=== PATIENT | female | born 1965 | race Caucasian/White ===

== ENCOUNTER 2016-12-03 07:16 | Day surgery (SDC) | payer OTHER ==
[~2016-12-03 07:16] MED LIST: EPINEPHRINE 1:1000 1 ML AMP ONE; Lactated Ringers 1,000 ML IV ONE; Marcaine 0.5% SDV 10 ML ONE; XYLOCAINE 1%/Epi 1:100000 MDV 20 ML ONE
[2016-12-03] MEDS ORDERED: CEFAZOLIN 2 GM-D5W BAG** 50 ML IV ONE ×2 (07:22→07:28)
[2016-12-03] MEDS ORDERED: Lactated Ringers 1,000 ML IV ONE (07:28)
[2016-12-03] MEDS ORDERED: Lactated Ringers 1,000 ML IV SCH (07:30)
[2016-12-03 08:15] LABS: ANION GAP 15.4 MEQ/L (5-15); BLOOD UREA NITROGEN 17 mg/dL (9-20); CHLORIDE 102 mEq/L (98-107); Carbon Dioxide 27.7 mEq/L (21-32); Glucose 218 MG/DL (70-110); SODIUM 141 mEq/L (136-145)
[2016-12-03] MEDS ORDERED: SUBLIMAZE 100 MCG/2 ML ONE (08:34)
[2016-12-03] MEDS ORDERED: SUBLIMAZE 100 MCG/2 ML IV SCH (08:45)
[2016-12-03] MEDS ORDERED: TORAdol 30 mg Injection IV ONE (10:00)
[2016-12-03] MEDS ORDERED: DIPRIVAN 200 MG/20 ML IV ONE (10:00)
[2016-12-03] MEDS ORDERED: SUBLIMAZE 100 MCG/2 ML IV ONE (10:00)
[2016-12-03] MEDS ORDERED: Zofran 4 MG/2 ML VIAL IV ONE (10:00)
[2016-12-03] MEDS ORDERED: DILAUDID 2 MG INJECTION IV ONE (10:00)
[2016-12-03] MEDS ORDERED: Decadron 4 MG INJ IV ONE (10:00)
[2016-12-03] MEDS ORDERED: ON-Q PUMP 1 in Marcaine Mpf 0.5% Vial 30 Ml*** 270 ML IV SCH (10:00)
[2016-12-03] MEDS ORDERED: APRESOLINE 20 MG/ML INJ ONE (11:30)
--- NOTE | 2016-12-03 11:57 | OP ---
SURGERY DATE/TIME: 12/03/2016 0958 PREOPERATIVE DIAGNOSIS: Internal derangement of the right knee. POSTOPERATIVE DIAGNOSES: 1) Right knee chondromalacia patella. 2) Right knee medial meniscal tear. 3) Multiple osteophytes intercondylar notch with osteochondral including one large osteochondral loose body. PROCEDURES: 1) Right knee arthroscopy with chondroplasty. 2) Right knee arthroscopy with debridement of medial meniscus and removal of loose body. 3) Right knee arthroscopy with bone saucerization-multiple osteophytes intercondylar notch. 4) Long leg splint. 5) On-Q pump catheter postoperative pain. SURGEON: Heron William D.O. MAINTENANCE MECHANIC: None. ANESTHESIA: General per SENIOR SALES COMPENSATION ANALYST. ESTIMATED BLOOD LOSS: Minimal. DESCRIPTION OF PROCEDURE: The patient is taken to the operative suite and placed in supine position, given a general anesthetic, placed supine. All neurovascular areas well padded. Sterile prep and drape done to the thigh. Entry point made in the suprapatellar pouch with Egress cannula and 0.5% Marcaine, 1% Lidocaine with epinephrine instilled into the knee. The infralateral aspect of the knee entered with a camera. Inframedial spinal needle stab incision and 404 radius shaver and the diagnostic arthroscopy begun. Chondral surface of the patella was pictured and probed. The chondral surface of the patella had multiple areas of type I and II outer bridge changes and this was treated with the ArthroCare device modified SERFAS device in the middle setting with a shaver and debrided these areas in the appropriate manner. Medial meniscus was probed and was found to have multiple tears over the posterior horn and the radial tears in the posterior horn were visualized and probed and then treated with punch forceps. Finally multiple osteophytic spurs in the intercondylar notch were pictured and probed and were treated with a 3.5 mm ivan and these were flattened out. I also removed a large osteochondral sessile loose body in the intercondylar notch and removed and sent to the back table. The lateral meniscus was assessed, it was cleaned and the rest of the joint surfaces were also without gross bony deficits. On-Q pump catheter placed over the separate entry point and secured with Steri-Strips run at a 1 to 2 cc/hour rate of 0.5% Marcaine. A long leg splint applied and the patient sent on to the recovery room in satisfactory condition.
[2016-12-03] MEDS ORDERED: Zofran 4 MG/2 ML VIAL IV PRN (12:05)
[2016-12-03] MEDS ORDERED: Zofran 4 MG/2 ML VIAL ONE (12:08)
[2016-12-03 16:49] VITALS: BP 161/92; PULSE 88; O2SAT 94
== END 2016-12-03 14:40 | disposition home or self-care (01) ==
LOC: SDC 07:16
PROVIDERS: ATTEND Orthopaedic Surgery
PROC: 0SBC4ZZ Excision of Right Knee Joint, Percutaneous Endoscopic Approach (ICD-10-PCS; principal; 2016-12-03)
PROC: 0SCC4ZZ Extirpation of Matter from Right Knee Joint, Percutaneous Endoscopic Approach (ICD-10-PCS; 2016-12-03)
PROC: 2W3QX1Z Immobilization of Right Lower Leg using Splint (ICD-10-PCS; 2016-12-03)
DX: M23.91 Unspecified internal derangement of right knee (principal); M22.41 Chondromalacia patellae, right knee; S83.241A Other tear of medial meniscus, current injury, right knee, initial encounter; M23.41 Loose body in knee, right knee; M25.561 Pain in right knee
CPT/HCPCS: 01400; 36415; 80048; 82962; 88304; 88311; J0171; J0360; J0690; J1100; J1170; J1885; J2405; J2704; J3010; L1830

== ENCOUNTER 2019-12-07 06:45 | Day surgery (SDC) | payer OTHER ==
[2019-12-07] MEDS ORDERED: Lactated Ringers 1,000 ML IV ONE ×2 (07:10→08:25)
[2019-12-07] MEDS ORDERED: Lactated Ringers 1,000 ML IV SCH (07:30)
[2019-12-07] MEDS ORDERED: Xylocaine-Mpf 2% 5 Ml Vial ONE (08:49)
[2019-12-07] MEDS ORDERED: DIPRIVAN 200 MG/20 ML IV ONE (08:49)
[2019-12-07] MEDS ORDERED: Zofran 4 MG/2 ML VIAL ONE (08:49)
[2019-12-07] MEDS ORDERED: SUBLIMAZE 100 MCG/2 ML ONE ×2 (08:49→10:07)
[2019-12-07] MEDS ORDERED: Decadron 4 MG INJ ONE (08:49)
[2019-12-07 10:54] VITALS: PULSE 71; O2SAT 96
[2019-12-07 11:07] VITALS: BP 152/85
--- NOTE | 2019-12-08 08:36 | OP ---
SURGERY DATE/TIME: 12/07/201928 PREOPERATIVE DIAGNOSIS: Postmenopausal bleeding. POSTOPERATIVE DIAGNOSIS: Postmenopausal bleeding. PROCEDURE: Hysteroscopy, D&C. SURGEON: Jj Pichardo D.O. ANESTHESIA: General. ESTIMATED BLOOD LOSS: Minimal. COMPLICATIONS: None. INDICATIONS: The risks, benefits, indications and alternatives of the procedure were reviewed with the patient prior to the procedure. The patient understood the risk of infection, bleeding, bowel injury, bladder injury, ureteral injury, uterine perforation, pelvic infection associated with the surgery and desired to have this surgery as a possible need to alleviate her current medical condition. DESCRIPTION OF PROCEDURE AND FINDINGS: At this point the patient is taken to the operating room, given general sedation, placed in dorsal lithotomy position. Prepped and draped in the usual sterile fashion. A weighted speculum is then placed in the patient's vagina and the anterior lip of the cervix was grasped with a single tooth tenaculum. Endocervical dilators are advanced through the endocervical canal as a means to dilate the cervix and at this point a 5 mm hysteroscope was then placed in through the endocervical canal where visualization of the endometrial cavity appeared to be within normal limits. There were no gross abnormalities visualized in the endometrial cavity. From this point the hysteroscope was then removed and the curette was then introduced towards the fundus of the uterus where currettage was performed in all quadrants of the uterus retrieving a moderate amount of endometrial tissue. After complete curettage the instrument was removed and there was minimal bleeding that was noted from her cervix. From this point all instruments were then removed from her vaginal region. The patient was taken out of the dorsal lithotomy position, was taken out of anesthesia and was then taken to the recovery room in stable condition. All instruments and laps were accounted for x2.
== END 2019-12-07 11:15 | disposition home or self-care (01) ==
LOC: SDC 06:45
PROVIDERS: ATTEND Obstetrics & Gynecology
DX: N93.9 Abnormal uterine and vaginal bleeding, unspecified (principal); N95.0 Postmenopausal bleeding; E11.9 Type 2 diabetes mellitus without complications; Z79.4 Long term (current) use of insulin; Z79.899 Other long term (current) drug therapy
CPT/HCPCS: 82962; 88305; J1100; J2405; J2704; J3010